=== PATIENT | male | born 1980 | race Caucasian/White ===

== ENCOUNTER 2023-08-01 10:29 | Day surgery (SDC) | payer BC, SELFPAY ==
[2023-08-01] VITALS (14 sets, daily range): BP systolic 104–133; BP diastolic 74–99; PULSE 52–71; RESP 14–20; TEMP 36.2–36.4; O2SAT 92–97; BMI 28.2
[2023-08-01] MEDS: LACTATED RINGERS 1000 ML 1,000 ML 100 ML IV ×2 (10:35→12:26)
--- OUTSIDE RECORDS SUMMARY | 2023-08-01 10:37 | XMS_ITS | Continuity of Care Document ---
Author Name [facility] Organization [facility] Care Team Providers Care Log Buyer Name Role Phone [facility] Unavailable Unavailable Problems Combined list of problems from Department of Defense and Veterans Affairs facilities. It does not include entries that were removed or entered in error. Problem Status Onset Date Problem Type Date of Resolution Comments Source Degeneration of lumbosacral intervertebral disc Active Condition [facility] Diastolic hypertension Active Condition [facility] Gastroesophageal reflux disease Active Condition [facility] Hyperlipidemia Active Condition [facility] Tobacco use Active Condition [facility] current smoker Active Condition [facility] Blood Pressure Isolated Elevated Active Condition [facility] visit for: preoperative exam Inactive Condition [facility] joint pain, localized in the knee Active Condition [facility] testicular pain Active Condition [facility] visit for: services physical separation Active Condition [facility] epididymitis Inactive Condition [facility] Other Physical Therapy Active Condition [facility] sacroiliitis Active Condition [facility] Administrative Evaluation Services Inactive Condition [facility] visit for: issue medical certificate fitness Inactive Condition [facility] backache Active Condition [facility] sinusitis Active Condition [facility] upper respiratory infection Inactive Condition [facility] sleep disturbances Active Condition [facility] hand sprain right Inactive Condition [facility] fracture of radius closed Inactive Condition [facility] cellulitis of the right arm Inactive Condition [facility] tobacco use Inactive Condition [facility] throat pain Inactive Condition [facility] pharyngitis Inactive Condition [facility] sore throat Inactive Condition [facility] Intervention And Counseling On Cessation Of Tobacco Use Inactive Condition [facility] visit for: services physical pre-deployment Inactive Condition [facility] refractive error - hypermetropia Active Condition [facility] astigmatism regular Active Condition [facility] routine ophthalmological exam Inactive Condition [facility] chlamydial infections Inactive Condition [facility] herpes simplex type I Inactive Condition [facility] visit for: screening exam Inactive Condition [facility] benign skin neoplasm subcutaneous lipoma Inactive Condition [facility] visit for: services physical Inactive Condition [facility] Patient Education Inactive Condition [facility] routine pre-employment screening examination Inactive Condition [facility] congenital anomalies of skin Inactive Condition [facility] ankle sprain right Inactive Condition [facility] Patient Counseling Medical Management Individual Patient Inactive Condition [facility] acne Inactive Condition [facility] Need For Vaccination Against Single Disease Inactive Condition Pt. received Anthrax by [employer], Lot# [id number], expiration date 03 Apr 2009 on 31 Oct 2007. The vaccine was given in the left arm. Administered by, SSjustus Bingham Allergy immunizations [employer] Offbearer. All VIS's were received. [facility] visit for: services physical accession Inactive Condition [facility] psychiatric diagnosis or condition deferred on axis II Inactive Condition [facility] psychiatric diagnosis or condition deferred on axis I Active Condition [facility] assessment of patient condition work-related Inactive Condition [facility] Need For Vaccination Hepatitis B Inactive Condition Pt. received Ped Hep B by [employer] Lot # [id number], expiration date 03 January 2010, on October 07. The vaccine was given in the left leg. Administered by, SSgt Lico Flanagan Allergy Immunizations [employer] Offbearer. All VIS's were received. [facility] Vaccines Prophylactic Need Inactive Condition Pt. receiv ed Anthrax by [employer], Lot# [id number], expiration date 03 Apr 2009 on 07 October 2007. The vaccine was given in the left arm. Administered by, justus Flanagan, Allergy immunizations [employer] Offbearer. All VIS's were received [facility] Need For Vaccination Typhoid Inactive Condition Pt. received Typhoid by Sanofi Pasteur, Lot # [id number], expiration date 18 October 2008 on October 07. The vaccine was given in the left arm. Administered by, justus Flanagan Allergy immunizations [employer]. All VIS's were received. [facility] visit for: administrative purpose Inactive Condition [facility] dysthymic disorder (depressive neurosis) Inactive Condition [facility] skin abscess of left ear Inactive Condition Set up for I&D to be performed tomorrow at same time as sebaceous cyst removal. [facility] sebaceous cyst Inactive Condition scrot al. Set up for excision. [facility] nicotine dependence Inactive Condition [facility] closed fracture distal phalanx 2nd finger right Inactive Condition follow up from diagnosis made in ER. Mildly displaced and involves little of the joint space. Will place in splint to keep DIP only in extension for four weeks and reexamine q2 weeks. NSAIDS as needed. [facility] esophageal reflux Active Condition [facility] Diagnosis: ICD-10-CM Z72.0 Tobacco use Active Diagnosis [facility] Diagnosis: ICD-10-CM I10 Essential (primary) hypertension Active Diagnosis [facility] Diagnosis: ICD-10-CM M51.37 Other intervertebral disc degeneration, lumbosacral region Active Diagnosis [facility] Medications Combined list of outpatient medications from Department of Defense and Veterans Affairs facilities.Medications provided include 1) outpatient medications from the last 15 months, and 2) patient-reported medications. Medication Details Route Status Patient Instructions Prescription Expires Prescription Number Last Dispense Date Ordering Provider Order Date Source AMLODIPINE BESYLATE 5MG TAB TAKE ONE TABLET BY MOUTH EVERY DAY FOR BLOOD PRESSURE ORALLY DISCONT INUED 06/15/2023 [id number] ROBERTO MONDRAGON 2021 [facility] VARENICLINE 1MG TAB TAKE ONE TABLET BY MOUTH TWICE A DAY TO QUIT TOBACCO ORALLY ACTIVE 07/24/2024 [id number] 4 GENEVIEVE OROPEZA 2023 [facility] VARENICLINE 1MG TAB TAKE ONE-HALF TABLET BY MOUTH EVERY DAY FOR 3 DAYS, THEN TAKE ONE-HALF TABLET TWICE A DAY FOR 4 DAYS, THEN TAKE ONE TABLET TWICE A DAY TO QUIT TOBACCO ORALLY DISCONT INUED 06/11/2024 [id number] ANG ROB 2022 [facility] VARENICLINE 1MG TAB TAKE 1 TABLET BY MOUTH TWICE A DAY TO QUIT TOBACCO MONTHS 2 AND 3 ORALLY DISCONT INUED 06/15/2023 [id number] 3 ROBERTO MONDRAGON 2021 [facility] VARENICLINE 1MG TAB TAKE ONE-HALF TABLET BY MOUTH EVERY DAY FOR 3 DAYS, THEN TAKE ONE-HALF TABLET TWICE A DAY FOR 4 DAYS, THEN TAKE 1 TABLET TWICE A DAY TO QUIT TOBACCO. STOP USING TOBACCO ON DAY 8. MONTH 1 OF 3: CALL PROVIDER FOR NEXT FILL TO QUIT TOBACCO. STOP USING TOBACCO ON DAY 8. MONTH 1 OF 3: CALL PROVIDER FOR NEXT FILL ORALLY 06/16/2022 [id number] ROBERTO MONDRAGON 2021 [facility] Allergies, Adverse Reactions, Alerts Combined list of allergies from Department of Defense and Veterans Affairs facilities. It does not include entries that were removed or entered in error. Substance Category Reaction Severity Reaction type Status Date Reported Comments Source NO OUTPUT FOR NCID [id number] Drug allergy (disorder) active 11/07/2007 [facility] Immunizations Combined list of available immunizations from the Department of Defense and Veterans Affairs facilities. Immunization Series Date Given Administered By Site Reaction Lot Number CVX Code Drug Colorman Status Comments Source INFLUENZA, UNSPECIFIED FORMULATION 2022 88 complet [facility] PNEUMOCOCCAL CONJUGATE PCV20, POLYSACCHARID E [id number] CONJUGATE, ADJUVANT, PF 2021 216 complet ed [facility] COVID-19 (MODERNA), MRNA, LNP-S, BIVALENT, PF, 50 MCG/0.5 ML OR 25MCG/0.25 ML DOSE 2021 229 complet [facility] INFLUENZA, INJECTABLE, MDCK, PRESERVATIVE FREE, QUADRIVALENT 2021 171 complet [facility] INFLUENZA, UNSPECIFIED FORMULATION 2020 88 complet ed [facility] INFLUENZA, INJECTABLE, QUADRIVALENT, PRESERVATIVE FREE 2020 150 complet ed [facility] COVID-19 (MODERNA), MRNA, LNP-S, PF, 100 MCG/0.5 ML DOSE 2 2020 207 complet ed [facility] COVID-19 (MODERNA), MRNA, LNP-S, PF, 100 MCG/0.5 ML DOSE 1 2020 207 complet [facility] INFLUENZA, INJECTABLE, QUADRIVALENT, PRESERVATIVE FREE 2019 150 complet [facility] PNEUMOCOCCAL POLYSACCHARID E PPV23 2019 33 complet ed [id number] [facility] INFLUENZA, SEASONAL, INJECTABLE 2016 141 complet [facility] INFLUENZA, INJECTABLE, QUADRIVALENT, PRESERVATIVE FREE 2016 150 complet [facility] INFLUENZA, INJECTABLE, QUADRIVALENT, PRESERVATIVE FREE 2014 150 complet [facility] TDAP 2013 115 complet [facility] influenza virus vaccine, live, attenuated, for intranasal use 12 2010 [id number] Daojia, NOZA. (MED) complet ed influenza virus vaccine, live, attenuate d, for intranasa l use [facility] influenza virus vaccine, split virus (incl. purified surface antigen)-reti red CODE 11 2009 [id number] Sanofi Pasteur (PMC) complet ed influenza virus vaccine, split virus (incl. purified surface antigen)- retired CODE DoD anthrax vaccine 4 2009 [id number] [employer] [place] ([facility]) complet ed anthrax vaccine DoD tetanus toxoid, reduced diphtheria toxoid, and acellular pertu is vaccine, adsorbed 0 2009 [id number] Sanofi Pasteur ([facility]) complet ed tetanus toxoid, reduced diphtheri a toxoid, and acellular pertussis vaccine, adsorbed DoD anthrax vaccine 3 2009 [id number] [facility] ([facility]) complet ed anthrax vaccine DoD typhoid Vi capsular polysaccharid e vaccine 1 2009 [id number] 101 Sanofi Pasteur ([facility]) complet ed typhoid Vi capsular polysacch aride vaccine DoD Novel influenza-H1N 1-09, injectable 1 2009 [id number] 127 [employer]progress. (NOV) complet ed Novel influenza -X1Y1-88, injectabl e DoD influenza virus vaccine, live, attenuated, for intranasal use 1 2008 [id number] [employer] (MED) complet ed influenza virus vaccine, live, attenuate d, for intranasa l use DoD hepatitis B vaccine, adult dosage 3 2008 [id number] 43 [employer] (SKB) complet ed hepatitis B vaccine, adult dosage DoD influenza virus vaccine, split virus (incl. purified surface antigen)-reti red CODE 1 2007 [id number] 15 Sanofi Pasteur ([facility]) complet ed influenza virus vaccine, split virus (incl. purified surface antigen)- retired CODE DoD hepatitis B vaccine, adult dosage 2 2007 [id number] 43 [employer] (SKB) complet ed hepatitis B vaccine, adult dosage DoD anthrax vaccine 2 2007 [id number] [employer] [place] ([facility]) complet ed anthrax vaccine DoD anthrax vaccine 1 2007 [id number] [facility] [place] ([facility]) complet ed anthrax vaccine DoD hepatitis B vaccine, adult dosage 1 2007 [id number] Merck (MSD) complet ed hepatitis B vaccine, adult dosage DoD typhoid Vi capsular polysaccharid e vaccine 1 2007 [id number] 101 Sanofi Pasteur ([facility]) complet ed typhoid Vi capsular polysacch aride vaccine DoD influenza virus vaccine, split virus (incl. purified surface antigen)-reti red CODE 1 2007 [id number] 15 [employer] (SKB) complet ed influenza virus vaccine, split virus (incl. purified surface antigen)- retired CODE DoD influenza virus vaccine, split virus (incl. purified surface antigen)-reti red CODE 1 2005 [id number] 15 Sanofi Pasteur ([facility]) complet ed influenza virus vaccine, split virus (incl. purified surface antigen)- retired CODE DoD influenza virus vaccine, split virus (incl. purified surface antigen)-reti red CODE 1 2004 [id number] 15 Sanofi Pasteur ([facility]) complet ed influenza virus vaccine, split virus (incl. purified surface antigen)- retired CODE DoD meningococcal polysaccharid e vaccine (MPSV4) 1 2004 [id number] 32 Sanofi Pasteur ([facility]) complet ed meningoco ccal polysacch aride vaccine (MPSV4) DoD vaccinia (smallpox) vaccine 0 2004 75 () Not Given vaccinia (smallpox ) vaccine DoD influenza virus vaccine, whole virus 1 2004 [id number] 16 Sanofi Pasteur ([facility]) complet ed influenza virus vaccine, whole virus DoD typhoid vaccine, parenteral, other than acetone-kille d, dried 1 2004 [id number] Sanofi Pasteur ([facility]) complet ed typhoid vaccine, parentera l, other than acetone-k illed, dried DoD influenza virus vaccine, whole virus 0 2002 [id number] [employer] (PWJ) complet ed influenza virus vaccine, whole virus DoD influenza virus vaccine, whole virus 0 2001 [id number] 16 Digna-Helio (NICHOLAS) complet ed influenza virus vaccine, whole virus DoD yellow fever vaccine 0 2001 [id number] Sanofi Pasteur (PMC) complet ed yellow fever vaccine DoD typhoid vaccine, parenteral, other than acetone-kille d, dried 0 2001 [id number] 41 Sanofi Pasteur ([facility]) complet ed typhoid vaccine, parentera l, other than acetone-k illed, dried DoD influenza virus vaccine, whole virus 0 2001 16 () complet ed influenza virus vaccine, whole virus DoD influenza virus vaccine, whole virus 0 2000 [id number] 16 Digna-Helio (WAL) complet ed influenza virus vaccine, whole virus DoD hepatitis A vaccine, adult dosage 2 2000 [id number] Merck (MSD) complet ed hepatitis A vaccine, adult dosage DoD measles, mumps and rubella virus vaccine 0 1999 [id number] Merck (MSD) complet ed measles, mumps and rubella virus vaccine DoD poliovirus vaccine, inactivated 0 1999 [id number] 10 Sanofi Pasteur (PMC) complet ed polioviru s vaccine, inactivat ed DoD varicella virus vaccine 1 1999 21 () Not Given varicella virus vaccine DoD hepatitis A vaccine, adult dosage 1 1999 [id number] 52 Sanofi Pasteur (PMC) complet ed hepatitis A vaccine, adult dosage DoD tetanus and diphtheria toxoids, adsorbed, preservative free, for adult use (2 Lf of tetanus toxoid and 2 Lf of diphtheria toxoid) 0 1999 [id number] Lederle (LED) comple t ed tetanus and diphtheri a toxoids, adsorbed, preservat abraham free, for adult use (2 Lf of tetanus toxoid and 2 Lf of diphtheri a toxoid) DoD meningococcal polysaccharid e vaccine (MPSV4) 0 1999 [id number] [place] (CON) complet ed meningoco ccal polysacch aride vaccine (MPSV4) DoD Results Combined list of recent chemistry, hematology and other laboratory results from Department of Defense and Veterans Affairs, ranging from 15 months to all on record, depending upon the facility. Order Name Results Value Reference Range Date Interpretation Specimen Comments Source CBC LEUKOCYTES [#/VOLUME] IN BLOOD BY AUTOMATED COUNT 6.97 4.0 - 11.0 06/11 Specimen Type: BLOOD No comment entered. Ordering Provider: ROBEL MENDIETA Report Released Date/Time: May 15, 2022 12:34 PM Reporting Lab: [facility] [address] Performing Lab: [facility] [address] [facility] CBC ERYTHROCYTE S [#/VOLUME] IN BLOOD BY AUTOMATED COUNT 5.03 4.6 - 6.2 06/11 Specimen Type: BLOOD No comment entered. Ordering Provider: ROBEL MENDIETA Report Released Date/Time: May 15, 2022 12:34 PM Reporting Lab: [facility] [address] Performing Lab: [facility] [address] [place] [facility] CBC HEMOGLOBIN [MASS/VOLUM E] IN BLOOD 15.3 13.5 - 17.9 06/11 Specimen Type: BLOOD No comment entered. Ordering Provider: ROBEL MENDIETA Report Released Date/Time: May 15, 2022 12:34 PM Reporting Lab: [facility] [phone] Performing Lab: [facility] [address] [place] [facility] CBC HEMATOCRIT [VOLUME FRACTION] OF BLOOD BY AUTOMATED COUNT 45.0 41 - 54 06/11 Specimen Type: BLOOD No comment entered. Ordering Provider: ROBEL MENDIETA Report Released Date/Time: May 15, 2022 12:34 PM Reporting Lab: [facility] [address] Performing Lab: [facility] [address] [place] [facility] CBC MCV [ENTITIC VOLUME] BY AUTOMATED COUNT 89.5 80 - 100 06/11 Specimen Type: BLOOD No comment entered. Ordering Provider: ROBEL MENDIETA Report Released Date/Time: May 15, 2022 12:34 PM Reporting Lab: [facility] [address] Performing Lab: [facility] [address] [place] [facility] CBC MCH [ENTITIC MASS] BY AUTOMATED COUNT 30.4 27 - 33 06/11 Specimen Type: BLOOD No comment entered. Ordering Provider: ROBEL MENDIETA Report Released Date/Time: May 15, 2022 12:34 PM Reporting Lab: [facility] [address] Performing Lab: [facility] [address] [place] [facility] CBC MCHC [MASS/VOLUM E] BY AUTOMATED COUNT 34.0 32.0 - 37.5 06/11 Specimen Type: BLOOD No comment entered. Ordering Provider: ROBEL MENDIETA Report Released Date/Time: May 15, 2022 12:34 PM Reporting Lab: [facility] [address] Performing Lab: [facility] [address] [place] [facility] CBC PLATELETS [#/VOLUME] IN BLOOD BY AUTOMATED COUNT 239 150 - 400 06/11 Specimen Type: BLOOD No comment entered. Ordering Provider: ROBEL MENDIETA Report Released Date/Time: May 15, 2022 12:34 PM Reporting Lab: [facility] [address] Performing Lab: [facility] [address] [place] [facility] CBC PLATELET MEAN VOLUME [ENTITIC VOLUME] IN BLOOD BY AUTOMATED COUNT 9.8 7.4 - 10.4 06/11 Specimen Type: BLOOD No comment entered. Ordering Provider: ROBEL MENDIETA Report Released Date/Time: May 15, 2022 12:34 PM Reporting Lab: [facility] [address] Performing Lab: [facility] [address] [facility] CBC ERYTHROCYTE DISTRIBUTIO N WIDTH [RATIO] BY AUTOMATED COUNT 12.9 11.5 - 14.5 06/11 Specimen Type: BLOOD No comment entered. Ordering Provider: ROBEL MENDIETA Report Released Date/Time: May 15, 2022 12:34 PM Reporting Lab: [facility] [address] Performing Lab: [facility] [address] [facility] BASIC METABOLIC PANEL+MG CREATININE [MASS/VOLUM E] IN SERUM OR PLASMA 0.9 0.7 - 1.2 06/11 Specimen Type: PLASMA No comment entered. Ordering Provider: ROBEL MENDIETA Report Released Date/Time: May 15, 2022 12:34 PM Reporting Lab: [facility] [address] Performing Lab: [facility] [address] [place] [facility] BASIC METABOLIC PANEL+MG UREA NITROGEN [MASS/VOLUM E] IN SERUM OR PLASMA 13 8 - 26 06/11 Specimen Type: PLASMA No comment entered. Ordering Provider: ROBEL MENDIETA Report Released Date/Time: May 15, 2022 12:34 PM Reporting Lab: [facility] [address] Performing Lab: [facility] [address] [place] [facility] BASIC METABOLIC PANEL+MG GLUCOSE [MASS/VOLUM E] IN SERUM OR PLASMA 94 70 - 100 06/11 Specimen Type: PLASMA No comment entered. Ordering Provider: ROBEL MENDIETA Report Released Date/Time: May 15, 2022 12:34 PM Reporting Lab: [facility] [address] Performing Lab: [facility] [address] [place] [facility] BASIC METABOLIC PANEL+MG SODIUM [MOLES/VOLU ME] IN SERUM OR PLASMA 138 136 - 145 06/11 Specimen Type: PLASMA No comment entered. Ordering Provider: ROBEL MENDIETA Report Released Date/Time: May 15, 2022 12:34 PM Reporting Lab: [facility] [address] Performing Lab: [facility] [address] [place] [facility] BASIC METABOLIC PANEL+MG POTASSIUM [MOLES/VOLU ME] IN SERUM OR PLASMA 4.5 3.5 - 5.1 06/11 Specimen Type: PLASMA No comment entered. Ordering Provider: ROBEL MENDIETA Report Released Date/Time: May 15, 2022 12:34 PM Reporting Lab: [facility] [address] Performing Lab: [facility] [address] [place] [facility] BASIC METABOLIC PANEL+MG CHLORIDE [MOLES/VOLU ME] IN SERUM OR PLASMA 106 98 - 107 06/11 Specimen Type: PLASMA No comment entered. Ordering Provider: ROBEL MENDIETA Report Released Date/Time: May 15, 2022 12:34 PM Reporting Lab: [facility] [address] Performing Lab: [facility] [address] [place] [facility] BASIC METABOLIC PANEL+MG CARBON DIOXIDE, TOTAL [MOLES/VOLU ME] IN SERUM OR PLASMA 26 22 - 29 06/11 Specimen Type: PLASMA No comment entered. Ordering Provider: ROBEL MENDIETA Report Released Date/Time: May 15, 2022 12:34 PM Reporting Lab: [facility] [address] Performing Lab: [facility] [address] [place] [facility] BASIC METABOLIC PANEL+MG CALCIUM [MASS/VOLUM E] IN SERUM OR PLASMA 9.4 8.4 - 10.2 06/11 Specimen Type: PLASMA No comment entered. Ordering Provider: ROBEL MENDIETA Report Released Date/Time: May 15, 2022 12:34 PM Reporting Lab: [facility] [address] Performing Lab: [facility] [address] [place] [facility] BASIC METABOLIC PANEL+MG MAGNESIUM [MASS/VOLUM E] IN SERUM OR PLASMA 2.2 1.6 - 2.6 06/11 Specimen Type: PLASMA No comment entered. Ordering Provider: ROBEL MENDIETA Report Released Date/Time: May 15, 2022 12:34 PM Reporting Lab: [facility] [address] Performing Lab: [facility] [address] [place] [facility] BASIC METABOLIC PANEL+MG ANION GAP IN SERUM OR PLASMA 6 5 - 15 06/11 Specimen Type: PLASMA No comment entered. Ordering Provider: ROBEL MENDIETA Report Released Date/Time: May 15, 2022 12:34 PM Reporting Lab: [facility] [address] Performing Lab: [facility] [address] [place] [facility] BASIC METABOLIC PANEL+MG GLOMERULAR FILTRATION RATE/1.73 SQ M.PREDICTED [VOLUME RATE/AREA] IN SERUM, PLASMA OR BLOOD BY CREATININE- BASED FORMULA (CKD-EPI 2020) >90 60 06/11 Specimen Type: PLASMA No comment entered. Ordering Provider: ROBEL MENDIETA Report Released Date/Time: May 15, 2022 12:34 PM Reporting Lab: [facility] [address] Performing Lab: [facility] [address] [place] [facility] AST/SGOT ASPARTATE AMINOTRANSF ERASE [ENZYMATIC ACTIVITY/VO LUME] IN SERUM OR PLASMA 14 <34 - 34 06/11 Specimen Type: PLASMA No comment entered. Ordering Provider: ROBEL MENDIETA Report Released Date/Time: May 15, 2022 12:34 PM Reporting Lab: [facility] [address] Performing Lab: [facility] [address] [place] [facility] ALT/SGPT ALANINE AMINOTRANSF ERASE [ENZYMATIC ACTIVITY/VO LUME] IN SERUM OR PLASMA 17 <55 - 55 06/11 Specimen Type: PLASMA No comment entered. Ordering Provider: ROBEL MENDIETA Report Released Date/Time: May 15, 2022 12:34 PM Reporting Lab: [facility] [facility] [address] Performing Lab: [facility] [address] [place] [facility] LIPID PANEL,NON -FASTING CHOLESTEROL [MASS/VOLUM E] IN SERUM OR PLASMA 198 <199 - 199 06/11 Specimen Type: PLASMA No comment entered. Ordering Provider: ROBEL MENDIETA Report Released Date/Time: May 15, 2022 12:34 PM Reporting Lab: [facility] [address] Performing Lab: [facility] [address] [place] [facility] LIPID PANEL,NON -FASTING CHOLESTEROL IN HDL [MASS/VOLUM E] IN SERUM OR PLASMA 37 40 06/11 L Specimen Type: PLASMA No comment entered. Ordering Provider: ROBEL MENDIETA Report Released Date/Time: May 15, 2022 12:34 PM Reporting Lab: [facility] [address] Performing Lab: [facility] [address] [place] [facility] LIPID PANEL,NON -FASTING CHOLESTEROL IN LDL [MASS/VOLUM E] IN SERUM OR PLASMA BY CALCULATION 131 <99 - 99 06/11 H Specimen Type: PLASMA No comment entered. Ordering Provider: ROBEL MENDIETA Report Released Date/Time: May 15, 2022 12:34 PM Reporting Lab: [facility] [address] Performing Lab: [facility] [address] [place] [facility] LIPID PANEL,NON -FASTING CHOLESTEROL IN VLDL [MASS/VOLUM E] IN SERUM OR PLASMA BY CALCULATION 30 <29 - 29 06/11 H Specimen Type: PLASMA No comment entered. Ordering Provider: ROBEL MENDIETA Report Released Date/Time: May 15, 2022 12:34 PM Reporting Lab: [facility] [address] Performing Lab: [facility] [address] [place] [facility] LIPID PANEL,NON -FASTING CHOLESTEROL NON HDL [MASS/VOLUM E] IN SERUM OR PLASMA 161 <129 - 129 06/11 H Specimen Type: PLASMA No comment entered. Ordering Provider: ROBEL MENDIETA Report Released Date/Time: May 15, 2022 12:34 PM Reporting Lab: [facility] [address] Performing Lab: [facility] [address] [place] [facility] LIPID PANEL,NON -FASTING TRIGLYCERID E [MASS/VOLUM E] IN SERUM OR PLASMA 149 <149 - 149 06/11 Specimen Type: PLASMA No comment entered. Ordering Provider: ROBEL MENDIETA Report Released Date/Time: May 15, 2022 12:34 PM Reporting Lab: [facility] [address] Performing Lab: [facility] [address] [place] [facility] CBC LEUKOCYTES [#/VOLUME] IN BLOOD BY AUTOMATED COUNT 7.86 4.0 - 11.0 05/15 Specimen Type: BLOOD No comment entered. Ordering Provider: GLADYS FISHER R Report Released Date/Time: May 10, 2021 11:22 AM Reporting Lab: [facility] [address] Performing Lab: [facility] [address] [place] [facility] CBC ERYTHROCYTE S [#/VOLUME] IN BLOOD BY AUTOMATED COUNT 4.85 4.6 - 6.2 05/15 Specimen Type: BLOOD No comment entered. Ordering Provider: GLADYS FISHER R Report Released Date/Time: May 10, 2021 11:22 AM Reporting Lab: [facility] [address] Performing Lab: [facility] [address] [place] [facility] CBC HEMOGLOBIN [MASS/VOLUM E] IN BLOOD 14.7 13.5 - 17.9 05/15 Specimen Type: BLOOD No comment entered. Ordering Provider: GLADYS FISHER R Report Released Date/Time: May 10, 2021 11:22 AM Reporting Lab: [address] Performing Lab: [address] [place] [facility] CBC HEMATOCRIT [VOLUME FRACTION] OF BLOOD BY AUTOMATED COUNT 43.2 41 - 54 05/15 Specimen Type: BLOOD No comment entered. Ordering Provider: GLADYS FISHER R Report Released Date/Time: May 10, 2021 11:22 AM Reporting Lab: [facility] [address] Performing Lab: [place] [address] [place] [facility] CBC MCV [ENTITIC VOLUME] BY AUTOMATED COUNT 89.1 80 - 100 05/15 Specimen Type: BLOOD No comment entered. Ordering Provider: GLADYS FISHER R Report Released Date/Time: May 10, 2021 11:22 AM Reporting Lab: [facility] [address] Performing Lab: [place] [address] [place] [facility] CBC MCH [ENTITIC MASS] BY AUTOMATED COUNT 30.3 27 - 33 05/15 Specimen Type: BLOOD No comment entered. Ordering Provider: GLADYS FISHER R Report Released Date/Time: May 10, 2021 11:22 AM Reporting Lab: [facility] [address] Performing Lab: [facility] [address] [place] [facility] CBC MCHC [MASS/VOLUM E] BY AUTOMATED COUNT 34.0 32.0 - 37.5 05/15 Specimen Type: BLOOD No comment entered. Ordering Provider: GLADYS FISHER R Report Released Date/Time: May 10, 2021 11:22 AM Reporting Lab: [facility] [address] Performing Lab: [place] [address] [place] [facility] CBC PLATELETS [#/VOLUME] IN BLOOD BY AUTOMATED COUNT 246 150 - 400 05/15 Specimen Type: BLOOD No comment entered. Ordering Provider: GLADYS FISHER R Report Released Date/Time: May 10, 2021 11:22 AM Reporting Lab: [facility] [address] Performing Lab: [facility] [address] [facility] CBC PLATELET MEAN VOLUME [ENTITIC VOLUME] IN BLOOD BY AUTOMATED COUNT 9.7 7.4 - 10.4 05/15 Specimen Type: BLOOD No comment entered. Ordering Provider: GLADYS FISHER R Report Released Date/Time: May 10, 2021 11:22 AM Reporting Lab: [facility] [address] Performing Lab: [facility] [address] [facility] CBC ERYTHROCYTE DISTRIBUTIO N WIDTH [RATIO] BY AUTOMATED COUNT 12.5 11.5 - 14.5 05/15 Specimen Type: BLOOD No comment entered. Ordering Provider: GLADYS FISHER R Report Released Date/Time: May 10, 2021 11:22 AM Reporting Lab: [facility] [address] Performing Lab: [facility] [address] [facility] COMPREHEN SIVE METABOLIC PANEL+MG CREATININE [MASS/VOLUM E] IN SERUM OR PLASMA 0.9 0.7 - 1.2 05/15 Specimen Type: PLASMA Comment: Elevated triglycerid e result from a non-fasting specimen should be interpreted with caution. A fasting panel is recommended for accurate triglycerid es when trigs are >200 from a non-fasting specimen. Ordering Provider: GLADYS FISHER R Report Released Date/Time: May 10, 2021 11:22 AM Reporting Lab: [facility] [address] Performing Lab: [facility] [address] [facility] COMPREHEN SIVE METABOLIC PANEL+MG UREA NITROGEN [MASS/VOLUM E] IN SERUM OR PLASMA 15 8 - 26 05/15 Specimen Type: PLASMA Comment: Elevated triglycerid e result from a non-fasting specimen should be interpreted with caution. A fasting panel is recommended for accurate triglycerid es when trigs are >200 from a non-fasting specimen. Ordering Provider: GLADYS FISHER R Report Released Date/Time: May 10, 2021 11:22 AM Reporting Lab: [facility] [address] Performing Lab: [facility] [address] [place] [facility] COMPREHEN SIVE METABOLIC PANEL+MG GLUCOSE [MASS/VOLUM E] IN SERUM OR PLASMA 85 70 - 100 05/15 Specimen Type: PLASMA Comment: Elevated triglycerid e result from a non-fasting specimen should be interpreted with caution. A fasting panel is recommended for accurate triglycerid es when trigs are >200 from a non-fasting specimen. Ordering Provider: GLADYS FISHER R Report Released Date/Time: May 10, 2021 11:22 AM Reporting Lab: [facility] [address] Performing Lab: [facility] [address] [facility] COMPREHEN SIVE METABOLIC PANEL+MG SODIUM [MOLES/VOLU ME] IN SERUM OR PLASMA 138 136 - 145 05/15 Specimen Type: PLASMA Comment: Elevated triglycerid e result from a non-fasting specimen should be interpreted with caution. A fasting panel is recommended for accurate triglycerid es when trigs are >200 from a non-fasting specimen. Ordering Provider: GLADYS FISHER R Report Released Date/Time: May 10, 2021 11:22 AM Reporting Lab: [facility] [address] Performing Lab: [facility] [address] [facility] COMPREHEN SIVE METABOLIC PANEL+MG POTASSIUM [MOLES/VOLU ME] IN SERUM OR PLASMA 4.2 3.5 - 5.1 05/15 Specimen Type: PLASMA Comment: Elevated triglycerid e result from a non-fasting specimen should be interpreted with caution. A fasting panel is recommended for accurate triglycerid es when trigs are >200 from a non-fasting specimen. Ordering Provider: GLADYS FISHER R Report Released Date/Time: May 10, 2021 11:22 AM Reporting Lab: [facility] [address] Performing Lab: [facility] [address] [place] [facility] COMPREHEN SIVE METABOLIC PANEL+MG CHLORIDE [MOLES/VOLU ME] IN SERUM OR PLASMA 108 98 - 107 05/15 H Specimen Type: PLASMA Comment: Elevated triglycerid e result from a non-fasting specimen should be interpreted with caution. A fasting panel is recommended for accurate triglycerid es when trigs are >200 from a non-fasting specimen. Ordering Provider: GLADYS FISHER R Report Released Date/Time: May 10, 2021 11:22 AM Reporting Lab: [facility] [address] Performing Lab: [facility] [address] [facility] COMPREHEN SIVE METABOLIC PANEL+MG CARBON DIOXIDE, TOTAL [MOLES/VOLU ME] IN SERUM OR PLASMA 24 - 05/15 Specimen Type: PLASMA Comment: Elevated triglycerid e result from a non-fasting specimen should be interpreted with caution. A fasting panel is recommended for accurate triglycerid es when trigs are >200 from a non-fasting specimen. Ordering Provider: GLADYS FISHRE R Report Released Date/Time: May 10, 2021 11:22 AM Reporting Lab: [facility] [address] Performing Lab: [facility] [address] [facility] COMPREHEN SIVE METABOLIC PANEL+MG CALCIUM [MASS/VOLUM E] IN SERUM OR PLASMA 8.7 8.4 - 10.2 05/15 Specimen Type: PLASMA Comment: Elevated triglycerid e result from a non-fasting specimen should be interpreted with caution. A fasting panel is recommended for accurate triglycerid es when trigs are >200 from a non-fasting specimen. Ordering Provider: GLADYS FISHER R Report Released Date/Time: May 10, 2021 11:22 AM Reporting Lab: [facility] [address] Performing Lab: [facility] [address] [place] [facility] COMPREHEN SIVE METABOLIC PANEL+MG PROTEIN [MASS/VOLUM E] IN SERUM OR PLASMA 6.6 6.0 - 8.3 05/15 Specimen Type: PLASMA Comment: Elevated triglycerid e result from a non-fasting specimen should be interpreted with caution. A fasting panel is recommended for accurate triglycerid es when trigs are >200 from a non-fasting specimen. Ordering Provider: GLADYS FISHER R Report Released Date/Time: May 10, 2021 11:22 AM Reporting Lab: [facility] [address] Performing Lab: [facility] [address] [place] [facility] COMPREHEN SIVE METABOLIC PANEL+MG ALBUMIN [MASS/VOLUM E] IN SERUM OR PLASMA 3.8 3.5 - 5.2 05/15 Specimen Type: PLASMA Comment: Elevated triglycerid e result from a non-fasting specimen should be interpreted with caution. A fasting panel is recommended for accurate triglycerid es when trigs are >200 from a non-fasting specimen. Ordering Provider: GLADYS FISHER R Report Released Date/Time: May 10, 2021 11:22 AM Reporting Lab: [facility] [address] Performing Lab: [facility] [address] [facility] COMPREHEN SIVE METABOLIC PANEL+MG BILIRUBIN.T OTAL [MASS/VOLUM E] IN SERUM OR PLASMA 0.3 0.2 - 1.2 05/15 Specimen Type: PLASMA Comment: Elevated triglycerid e result from a non-fasting specimen should be interpreted with caution. A fasting panel is recommended for accurate triglycerid es when trigs are >200 from a non-fasting specimen. Ordering Provider: GLADYS FISHER R Report Released Date/Time: May 10, 2021 11:22 AM Reporting Lab: [facility] [address] Performing Lab: [facility] [address] [facility] COMPREHEN SIVE METABOLIC PANEL+MG MAGNESIUM [MASS/VOLUM E] IN SERUM OR PLASMA 2.2 1.6 - 2.6 05/15 Specimen Type: PLASMA Comment: Elevated triglycerid e result from a non-fasting specimen should be interpreted with caution. A fasting panel is recommended for accurate triglycerid es when trigs are >200 from a non-fasting specimen. Ordering Provider: GLADYS FISHER R Report Released Date/Time: May 10, 2021 11:22 AM Reporting Lab: [facility] [address] Performing Lab: [facility] [address] [place] [facility] COMPREHEN SIVE METABOLIC PANEL+MG ANION GAP IN SERUM OR PLASMA 6 5 - 15 05/15 Specimen Type: PLASMA Comment: Elevated triglycerid e result from a non-fasting specimen should be interpreted with caution. A fasting panel is recommended for accurate triglycerid es when trigs are >200 from a non-fasting specimen. Ordering Provider: GLADYS FISHER R Report Released Date/Time: May 10, 2021 11:22 AM Reporting Lab: [facility] [address] Performing Lab: [facility] [address] [place] [facility] COMPREHEN SIVE METABOLIC PANEL+MG ALKALINE PHOSPHATASE [ENZYMATIC ACTIVITY/VO LUME] IN SERUM OR PLASMA 55 40 - 150 05/15 Specimen Type: PLASMA Comment: Elevated triglycerid e result from a non-fasting specimen should be interpreted with caution. A fasting panel is recommended for accurate triglycerid es when trigs are >200 from a non-fasting specimen. Ordering Provider: GLADYS FISHER R Report Released Date/Time: May 10, 2021 11:22 AM Reporting Lab: [facility] [address] Performing Lab: [facility] [address] [place] [facility] COMPREHEN SIVE METABOLIC PANEL+MG ALANINE AMINOTRANSF ERASE [ENZYMATIC ACTIVITY/VO LUME] IN SERUM OR PLASMA 25 <55 - 55 05/15 Specimen Type: PLASMA Comment: Elevated triglycerid e result from a non-fasting specimen should be interpreted with caution. A fasting panel is recommended for accurate triglycerid es when trigs are >200 from a non-fasting specimen. Ordering Provider: GLADYS FISHER R Report Released Date/Time: May 10, 2021 11:22 AM Reporting Lab: [facility] [address] Performing Lab: [facility] [address] [place] [facility] COMPREHEN SIVE METABOLIC PANEL+MG ASPARTATE AMINOTRANSF ERASE [ENZYMATIC ACTIVITY/VO LUME] IN SERUM OR PLASMA 11 <34 - 34 05/15 Specimen Type: PLASMA Comment: Elevated triglycerid e result from a non-fasting specimen should be interpreted with caution. A fasting panel is recommended for accurate triglycerid es when trigs are >200 from a non-fasting specimen. Ordering Provider: GLADYS FISHER R Report Released Date/Time: May 10, 2021 11:22 AM Reporting Lab: [facility] [address] Performing Lab: [facility] [address] [place] [facility] COMPREHEN SIVE METABOLIC PANEL+MG GLOMERULAR FILTRATION RATE/1.73 SQ M.PREDICTED [VOLUME RATE/AREA] IN SERUM, PLASMA OR BLOOD BY CREATININE- BASED FORMULA (CKD-EPI) >90 60 05/15 Specimen Type: PLASMA Comment: Elevated triglycerid e result from a non-fasting specimen should be interpreted with caution. A fasting panel is recommended for accurate triglycerid es when trigs are >200 from a non-fasting specimen. Ordering Provider: GLADYS FISHER R Report Released Date/Time: May 10, 2021 11:22 AM Reporting Lab: [facility] [address] Performing Lab: [facility] [address] [place] [facility] LIPID PANEL,NON -FASTING CHOLESTEROL [MASS/VOLUM E] IN SERUM OR PLASMA 211 <199 - 199 05/15 H Specimen Type: PLASMA Comment: Elevated triglycerid e result from a non-fasting specimen should be interpreted with caution. A fasting panel is recommended for accurate triglycerid es when trigs are >200 from a non-fasting specimen. Ordering Provider: GLADYS FISHER R Report Released Date/Time: May 10, 2021 11:22 AM Reporting Lab: [facility] [address] Performing Lab: [facility] [address] [place] [facility] LIPID PANEL,NON -FASTING CHOLESTEROL IN HDL [MASS/VOLUM E] IN SERUM OR PLASMA 39 40 05/15 L Specimen Type: PLASMA Comment: Elevated triglycerid e result from a non-fasting specimen should be interpreted with caution. A fasting panel is recommended for accurate triglycerid es when trigs are >200 from a non-fasting specimen. Ordering Provider: GLADYS FISHER R Report Released Date/Time: May 10, 2021 11:22 AM Reporting Lab: [facility] [address] Performing Lab: [facility] [address] [place] [facility] LIPID PANEL,NON -FASTING CHOLESTEROL IN LDL [MASS/VOLUM E] IN SERUM OR PLASMA BY CALCULATION 107 <99 - 99 05/15 H Specimen Type: PLASMA Comment: Elevated triglycerid e result from a non-fasting specimen should be interpreted with caution. A fasting panel is recommended for accurate triglycerid es when trigs are >200 from a non-fasting specimen. Ordering Provider: GLADYS FISHER R Report Released Date/Time: May 10, 2021 11:22 AM Reporting Lab: [facility] [address] Performing Lab: [facility] [address] [place] [facility] LIPID PANEL,NON -FASTING CHOLESTEROL IN VLDL [MASS/VOLUM E] IN SERUM OR PLASMA BY CALCULATION 65 <29 - 29 05/15 H Specimen Type: PLASMA Comment: Elevated triglycerid e result from a non-fasting specimen should be interpreted with caution. A fasting panel is recommended for accurate triglycerid es when trigs are >200 from a non-fasting specimen. Ordering Provider: GLADYS FISHER R Report Released Date/Time: May 10, 2021 11:22 AM Reporting Lab: [facility] [address] Performing Lab: [facility] [address] [place] [facility] LIPID PANEL,NON -FASTING CHOLESTEROL NON HDL [MASS/VOLUM E] IN SERUM OR PLASMA 172 <129 - 129 05/15 H Specimen Type: PLASMA Comment: Elevated triglycerid e result from a non-fasting specimen should be interpreted with caution. A fasting panel is recommended for accurate triglycerid es when trigs are >200 from a non-fasting specimen. Ordering Provider: GLADYS FISHER R Report Released Date/Time: May 10, 2021 11:22 AM Reporting Lab: [facility] [address] Performing Lab: [facility] [address] [place] [facility] LIPID PANEL,NON -FASTING TRIGLYCERID E [MASS/VOLUM E] IN SERUM OR PLASMA 323 <149 - 149 05/15 H Specimen Type: PLASMA Comment: Elevated triglycerid e result from a non-fasting specimen should be interpreted with caution. A fasting panel is recommended for accurate triglycerid es when trigs are >200 from a non-fasting specimen. Ordering Provider: GLADYS FISHER R Report Released Date/Time: May 10, 2021 11:22 AM Reporting Lab: [facility] [address] Performing Lab: [facility] [address] [facility] HEMOGLOBI N A1C HEMOGLOBIN A1C/HEMOGLO BIN.TOTAL IN BLOOD 5.6 4.0 - 6.0 05/15 Specimen Type: BLOOD Comment: Values obtained from A1C measurement s can vary. For typical A1C assays, a reported value of 7.0 could actually be between 6.7 and 7.3 if measured by a reference method. A reported value of 9.0 could actually be between 8.7 and 9.3. Ref: http://www. ngsp.org/[place] Pdata.asp Ordering Provider: GLADYS FISHER Report Released Date/Time: May 10, 2021 11:22 AM Reporting Lab: [facility] [address] Performing Lab: [facility] [address] [facility] TSH W/REFLEX TO FREE T4 THYROTROPIN [UNITS/VOLU ME] IN SERUM OR PLASMA 0.95 0.35 - 4.94 05/15 Specimen Type: PLASMA Comment: Elevated triglycerid e result from a non-fasting specimen should be interpreted with caution. A fasting panel is recommended for accurate triglycerid es when trigs are >200 from a non-fasting specimen. Ordering Provider: GLADYS FISHER Report Released Date/Time: May 10, 2021 11:22 AM Reporting Lab: [facility] [address] Performing Lab: [facility] [address] [facility] Vital Signs Combined list of inpatient and outpatient Vital Signs from Department of Defense and Veterans Affairs, ranging from 12 months to all on record, depending upon the facility. Vital Sign Value Date Comments Source SYSTOLIC BLOOD PRESSURE 122 06/11/2023 10:08:01 [facility] DIASTOLIC BLOOD PRESSURE 86 06/11/2023 10:08:01 [facility] PULSE OXIMETRY 94% 06/11/2023 10:08:01 [facility] [place] [facility] WEIGHT 212.9 06/11/2023 10:08:01 [place] [facility] BMI 28kg/m2 06/11/2023 10:08:01 [facility] PAIN 2 06/11/2023 10:08:01 [facility] HEIGHT 73 06/11/2023 10:08:01 [facility] TEMPERATURE 98.5 06/11/2023 10:08:01 [facility] PULSE 72 06/11/2023 10:08:01 [facility] RESPIRATION 16 06/11/2023 10:08:01 [facility] Encounters Combined list of: 1) Encounters from Department of Veterans Affairs facilities going back up to thelast 18 months. 2) Encounters from the Department of Defense facilities going back up to 280 months. Location Location Details Encounter Type Encounter Number Reason For Visit Attending Provider ADM Date DC Date Status Disposition Source [employer]([facility]) OUTPATIENT [id number] TURNER MONTANO 03/07 Released w/o Limitations [employer]([facility]) [employer]([facility]) OUTPATIENT [id number] TURNER MONTANO 03/15 Released w/o Limitations [employer]) [employer]([facility]) OUTPATIENT [id number] TURNER MONTANO 03/28 Released w/o Limitations [employer]) [employer]([facility]) OUTPATIENT [id number] referra l from ADRY Hamilton 03/29 Released w/o Limitations [employer] [employer]) OUTPATIENT [id number] TURNER MONTANO 04/04 Released w/o Limitations [employer]) [employer]([facility]) OUTPATIENT [id number] TURNER MONTANO 04/12 Released w/o Limitations [employer]) [employer]([facility]) OUTPATIENT [id number] TURNER MONTANO 05/03 Released w/o Limitations [employer]) [employer]([facility]) OUTPATIENT [id number] follow up nicole vernon to MEL Woodruff 05/09 Released w/o Limitations [employer] [employer]([facility]) OUTPATIENT [id number] TURNER MONTANO 07/11 Released w/o Limitations [employer] [employer] OUTPATIENT [id number] TURNER MONTANO 07/18 Released w/o Limitations [employer] [employer]([facility]) OUTPATIENT [id number] TURNER MONTANO 07/25 Released w/o Limitations [employer] [employer]([facility]) OUTPATIENT [id number] TURNER MONTANO 08/10 Released w/o Limitations [employer]([facility]) [employer]([facility]) OUTPATIENT [id number] growth on back of ear MEL WEINBERG 08/14 Released w/o Limitations [employer] [employer]([facility]) OUTPATIENT [id number] TURNER MONTANO 08/16 Released w/o Limitations [employer]) [employer]([facility]) OUTPATIENT [id number] I & D per MEL Turcios 08/17 Released w/o Limitations [employer] [employer]([facility]) OUTPATIENT [id number] TURNER MONTANO 08/23 Released w/o Limitations [employer] [employer]([facility]) OUTPATIENT [id number] TURNER MONTANO 08/30 Released w/o Limitations [employer] [employer]([facility]) OUTPATIENT [id number] TURNER MONTANO 11/08 Released w/o Limitations [employer]) [employer] Group([facility]) OUTPATIENT [id number] TURNER MONTANO 11/22 Released w/o Limitations [employer](A lc Mental Health) [employer]([facility] Mental Health) OUTPATIENT [id number] care summary , no patient contact TURNER MONTANO 01/18 Released w/o Limitations [employer](A Mental Health) [facility] [employer](All ergy Clinic) OUTPATIENT [id number] immuniz ations LICO Hernandez Janette 10/09 Released w/o Limitations [facility](A llergy Clinic) [facility] Practice [facility]) OUTPATIENT [id number] pha KD LEE 10/17 Released w/o Limitations [employer](F amily Practic e Clinic) [employer]) OUTPATIENT [id number] Assessm ent for deploym ent FRANCISCO FLOWER 10/24 Released w/o Limitations [employer]( ental Health Clinic) [facility] OUTPATIENT [id number] Pre-Dep zaydaymMARYANN Arboleda 10/29 Released w/o Limitations [employer](F light Medicin e Clinic) [facility] ergy Clinic) OUTPATIENT [id number] immuniz ations SU SEGUNDO 11/05 Released w/o Limitations [employer](A llergy Clinic) [facility] g[facility] Medicine Clinic) OUTPATIENT [id number] post-de IVONE Tapia 06/03 Released w/o Limitations [employer](F light Medicin e Clinic) [facility] Medicine Clinic Team B) OUTPATIENT [id number] F/U 2796 PARAS WINSTON 06/04 Released w/o Limitations [employer] [facility] [employer](F amily Medicin e Clinic Team B) [employer] OUTPATIENT [id number] pha KATIA Bush 10/12 Released w/o Limitations [employer] [facility]) [place] [address] [facility] Team B) OUTPATIENT [id number] ankle injury PARAS WINSTON 10/20 Released w/o Limitations [place] [address] [facility]( amily Medicin e Clinic Team B) [place] [address] [facility] Team B) OUTPATIENT [id number] ankle sprain PARAS WINSTON 10/28 Released w/o Limitations [place] [address] [facility]( amily Medicin e Clinic Team B) [place] [address] [facility] Team B) OUTPATIENT [id number] Acid Reflux MAXIME LITTLE 01/26 Released w/o Limitations [place] [address] [facility]( amily Medicin e Clinic Team B) [place] [address] [facility]) OUTPATIENT [id number] Smoking Cessati on SCOOBY FLORES L 03/23 Released w/o Limitations [place] [address] [facility]( light Medicin e Clinic) [place] [address] [facility]) OUTPATIENT [id number] pre deploym ENOC Rucker 10/06 Released w/o Limitations [place] [address] [facility]) [address] [facility]) OUTPATIENT [id number] KADEN Carrillo 10/08 Released w/o Limitations [place] [address] [facility]) [address] [facility] Team B) OUTPATIENT [id number] eval cyst on back SHIREEN CUNNINGHAM 10/11 Released w/o Limitations [place] [address] [facility]( amily Medicin e Clinic Team B) [address] [facility]) TELE CONSULT [id number] Positiv e screen for HSV 1 SHIREEN CUNNINGHAM 10/[address] [place] [address] [facility] [place] [facility] [place] [address] [facility](Opt ometry Clinic) OUTPATIENT [id number] exam SASKIA MARROQUIN Melyssa 10/20 Released w/o Limitations [place] [address] [facility] Group(O ptometr y Clinic) [place] MADRIGAL[address] [facility] Medicine Clinic Team B) TELE CONSULT [id number] predepl oparas ALEXANDER10/27 [place] [address] [facility]( amily Medicin e Clinic Team B) [place] Dorian[address] [facility] ght Medicine Clinic) OUTPATIENT [id number] Pre-dep loTALYA Miller 10/29 Released w/o Limitations [place] [address] [facility](F light Medicin e Clinic) [place] [address] [facility] Medicine Clinic Team B) TELE CONSULT [id number] Positiv e Repeat Labs JUSTIN DE LA TORRE 11/[address] [place] [address] [facility]( amily Medicin e Clinic Team B) [facility] OUTPATIENT [id number] 01/18 Released w/o Limitations [facility] OUTPATIENT [id number] 01/19 Released w/o Limitations [facility] OUTPATIENT [id number] 02/23 Released w/o Limitations [facility] [place] [address] [facility]) OUTPATIENT [id number] post ENOC BADILLO 05/09 Released w/o Limitations [place] [address] [facility]) [place] [address]ian[address] [facility] OUTPATIENT [id number] Post-TALYA Person 05/24 Released w/o Limitations [place] [address] [facility](F light Medicin e Clinic) [place] [address] [facility] Medicine Clinic Team B) OUTPATIENT [id number] Sore throat x 8 days HOLLI RUIZ I 09/22 Released w/o Limitations [place] [address] [facility](F amily Medicin e Clinic Team B) [place] [address] [facility] OUTPATIENT [id number] sore throat f/u HOLLI RUIZ I 10/13 Released w/o Limitations [employer] [employer]( amily Medicin e Clinic Team B) [address] [facility] Team B) TELE CONSULT [id number] [place] off [place] for throat SHOYUSUF, HOLLI I 10/[address] [address] [facility]( amily Medicin e Clinic Team B) [address] [facility] Team B) OUTPATIENT [id number] Dog Bite last night SHOYUSUF, HOLLI I 12/15 Released w/o Limitations [place] [address] [facility]( amily Medicin e Clinic Team B) [address] [facility] Team B) TELE CONSULT [id number] follow up dog bite SARA, HOLLI I 12/20 [place] [address] [facility]( amily Medicin e Clinic Team B) [address] [facility] Team B) OUTPATIENT [id number] f/up post surgery SARA, HOLLI I 12/26 Released w/o Limitations [facility] [address] [facility]( amily Medicin e Clinic Team B) [address] [facility] Team B) OUTPATIENT [id number] possibl e broke right thumb MAXIME LITTLE 02/07 Released with Work/Duty Limitations [facility] [address] [facility]( amily Medicin e Clinic Team B) [address] [facility]) OUTPATIENT [id number] KADEN Carrillo 02/22 Released w/o Limitations [facility] [address] [facility] Health Doshira spain) [address] [facility] Team B) OUTPATIENT [id number] sleep issues general DEVAN Lees 03/13 Released w/o Limitations [place] [address] [facility]( amily Medicin e Clinic Team B) [facility] [address] [facility] Team B) OUTPATIENT [id number] possibl e sinus infecti on SHOAF, HOLLI I 05/29 Released w/o Limitations [employer] [employer]( amily Medicin e Clinic Team B) [employer] [employer]([facility] Team B) OUTPATIENT [id number] pt states lower back pain, painful DEVAN MANLEY N 07/31 Released w/o Limitations [employer]( amily Medicin e Clinic Team B) [facility] [employer]([facility]) TELE CONSULT [id number] Notes Entered by: ADAN ESPINOZA 05 Aug 2011 1415 ------- ------- ------- ------- -- Antony Guerra ce: SBI/TOP SECRET ADAN ESPINOZA 08/05 [place] B- [facility] Group( light Medicin e Clinic) [facility] [employer]([facility]) TELE CONSULT [id number] Notes Entered by: ALANIS DELGADILLO 14 Aug 2011 1851 ------- ------- ------- ------- -- Antony Guerra ce Review ROGERS DELGADILLO 08/15 [place] [facility] [employer] [employer](Phy sical Therapy) OUTPATIENT [id number] GAVIN MCGUIRE 08/17 Released w/o Limitations [facility] [employer](P hysical Therapy ) [facility] OUTPATIENT [id number] LBP ASHIA MAZARIEGOS 09/05 Released w/o Limitations [employer] [employer](P hysical Therapy ) [facility] [employer](Phy sical Therapy) OUTPATIENT [id number] LBP ASHIA MAZARIEGOS 09/14 Released w/o Limitations [place](P hysical Therapy ) [facility](Phy sical Therapy) OUTPATIENT [id number] LBP NAUN KHAN 09/19 Released w/o Limitations [address] [facility](P hysical Therapy ) [address] [facility](Phy sical Therapy) OUTPATIENT [id number] f/u LBP GAVIN SINGH 09/20 Released w/o Limitations [address] [facility](P hysical Therapy ) [address] [facility](Phy sical Therapy) OUTPATIENT [id number] LBP NAUN KHAN 10/10 Released w/o Limitations [address] [facility](P hysical Therapy ) [address] [facility] Group(Phy sical Therapy) OUTPATIENT [id number] LBP ASHIA MAZARIEGOS Mio 10/31 Released w/o Limitations [address] [facility](P hysical Therapy ) [address] [facility] Team B) OUTPATIENT [id number] back problem s, can't sleep at night DEVAN MANLEY 11/14 Released w/o Limitations [address] [facility] [address] [facility] Team B) TELE CONSULT [id number] Notes Entered by: QUINN TINSLEY 05 Dec 2011 1233 ------- ------- ------- ------- -- pt states needs his sleep study and mri results TRICIA PETERS 12/[address] [facility]( amily Medicin e Clinic Team B) [address] [facility] Clinic Team B) TELE CONSULT [id number] Notes Entered by: ADI REGAN 12 Dec 2011 1322 ------- ------- ------- ------- -- MRI and Sleep study results . DEVAN MANLEY 12/[address] [facility] Medicin e Clinic Team B) [facility] [employer]([facility] Team B) OUTPATIENT [id number] pt states [place] Macias 12/21 Released w/o Limitations [facility] [employer]([facility] Medicin e Clinic Team B) [facility] Team B) OUTPATIENT [id number] outproc essing appt DEVAN MANLEY 01/04 [facility] w/o Limitations [facility] Team B) TELE CONSULT [id number] Notes Entered by: Melyssa DOUGLASS 16 Jan 2012 1019 ------- ------- ------- ------- -- MRI results TRICIA PETERS 01/[address] [facility] Medicin e Clinic Team B) [address] [facility] Team B) TELE CONSULT [id number] Notes Entered by: QUINN TINSLEY 19 Jan 2012 1030 ------- ------- ------- ------- -- pt states needs a referTRICIA Hidalgo 01/18 [facility] [facility] Team B) TELE CONSULT [id number] Notes Entered by: QUINN TINSLEY 19 Jan 2012 1036 ------- ------- ------- ------- -- pt states needs a H&P TRICIA Castano 01/18 [facility] [facility] Team B) OUTPATIENT [id number] pre-op appt. 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, lumbosa cral region< br/> NESS,SYLVI A O 05[facility] [place] [facility] [place] [facility] HC PRO PHONE CALL 11-20 MIN [id number] Diagnos is: ICD-10- CM Z72.0 Tobacco use<br/ > MILLIREN,E NATHALIE D 05/17 [place] [facility] [place] [facility] HC PRO PHONE CALL 11-20 MIN [id number] Diagnos is: ICD-10- CM Z72.0 Tobacco use<br/ > MILLIREN,E NATHALIE D 06/14 [place] [facility] [place] [facility] HC PRO PHONE CALL 5-10 MIN [id number] Diagnos is: ICD-10- CM Z72.0 Tobacco use<br/ > MILLIREN,E NATHALIE D 07/12 [place] [facility] QNHP OL DIG ASSMT&MGMT 5-10 [id number] Diagnos is: ICD-10- CM I10 Essenti al (primar y) hyperte nsion<b r/> ROOPAIREJanetteE NATHALIE D 08/08 [place] [facility] [place] [facility] Outpatient Encounter [id number] 08/08 [place] [facility] [place] [facility] Outpatient Encounter [id number] 05/02 [place] [facility] [place] [facility] Outpatient Encounter [id number] 05/08 [facility] [facility] Outpatient Encounter [id number] 06/11 [facility] OFFICE O/P EST MOD 30-39 MIN [id number] Diagnos is: ICD-10- CM Z72.0 Tobacco use<br/ > SANDRO ROB 06/11 [facility] HC PRO PHONE CALL 11-20 MIN [id number] Diagnos is: ICD-10- CM Z72.0 Tobacco use<br/ > NAMARIA TERESA ALVAREZ 06/13 [facility] MTMS BY PHARM EST 15 MIN [id number] Diagnos is: ICD-10- CM Z72.0 Tobacco use<br/ > NAMARIA TERESA ALVAREZ 07/24 [facility] Procedures Combined list of: 1) Procedures from Department of Veterans Affairs facilities going back up to thelast 18 months, not all [place] non-surgical procedures are included; 2) All procedures from the Department of Defense facilities. Procedure Procedure Type Code Date Perfomer Comments Mickey e Modalities Heat Hot Packs Modalities Heat Hot Packs 26318 11/02/19 12 ASHIA MAZARIEGOS Physical Therapy: ___ Se ion Segments, 15 Minutes Each Physical Therapy: ___ Session Segments, 15 Minutes Each 05024 11/02/19 12 ASHIA MAZARIEGOS Modalities Electrical Stimulation Unattended Modalities Electrical Stimulation Unattended 50774 11/02/19 12 ASHIA MAZARIEGOS Modalities Electrical Stimulation Unattended Modalities Electrical Stimulation Unattended 02374 10/11/19 12 NAUN KHAN Modalities Heat Hot Packs Modalities Heat Hot Packs 27502 10/11/19 12 NANU KHAN Physical Therapy: ___ Se ion Segments, 15 Minutes Each Physical Therapy: ___ Session Segments, 15 Minutes Each 80777 10/11/19 12 NAUN KHAN Modalities Heat Hot Packs Modalities Heat Hot Packs 94167 09/22/19 12 GAVIN SINGH [facility] Modalities Electrical Stimulation Unattended Modalities Electrical Stimulation Unattended 90255 09/22/19 12 GAVIN RACHEL [facility] Osteopathic Manip Treatment (OMT) 1-2 Body Regions Involved Osteopathic Manip Treatment (OMT) 1-2 Body Regions Involved 90866 09/22/19 12 GAVIN SINGH [facility] Physical Therapy Service Re-Evaluation 09/22/19 12 GAVIN RACHEL [facility] Modalities Electrical Stimulation Unattended Modalities Electrical Stimulation Unattended 27519 09/20/19 12 NAUN KHAN [facility] Modalities Heat Hot Packs Modalities Heat Hot Packs 06665 09/20/19 12 NAUN KHAN [facility] Physical Therapy: ___ Se ion Segments, 15 Minutes Each Physical Therapy: ___ Session Segments, 15 Minutes Each 21783 09/20/19 12 NAUN KHAN [facility] Modalities Heat Hot Packs Modalities Heat Hot Packs 22321 09/15/19 12 ASHIA MAZARIEGOS [facility] Modalities Electrical Stimulation Unattended Modalities Electrical Stimulation Unattended 55058 09/15/19 12 ASHIA MAZARIEGOS [facility] Physical Therapy: ___ Se ion Segments, 15 Minutes Each Physical Therapy: ___ Session Segments, 15 Minutes Each 10379 09/15/19 12 ASHIA MAZARIEGOS Modalities Electrical Stimulation Unattended Modalities Electrical Stimulation Unattended 08262 09/07/19 12 ASHIA MAZARIEGOS [facility] Modalities Heat Hot Packs Modalities Heat Hot Packs 87651 09/07/19 12 ASHIA MAZARIEGOS [facility] Physical Therapy: ___ Se ion Segments, 15 Minutes Each Physical Therapy: ___ Session Segments, 15 Minutes Each 74543 09/07/19 12 ASHIA MAZARIEGOS [facility] Modalities Heat Hot Packs Modalities Heat Hot Packs 89441 08/18/19 12 GAVIN SINGH [facility] Modalities Electrical Stimulation Unattended Modalities Electrical Stimulation Unattended 05391 08/18/19 12 GAVIN RACHEL [facility] Osteopathic Manip Treatment (OMT) 1-2 Body Regions Involved Osteopathic Manip Treatment (OMT) 1-2 Body Regions Involved 03467 08/18/19 12 GAVIN SINGH [facility] Physical Therapy Service Evaluation 08/18/19 12 GAVIN SINGH [facility] Psychiatric Diagnostic Evaluation Review of Records and Reports Psychiatric Diagnostic Evaluation Review of Records and Reports 40240 08/04/19 12 BRITNEY ZAMAN [facility] Physician Supervised Injection Intramuscular Physician Supervised Injection Intramuscular 06766 12/17/19 11 PURVIYUSUFHOLLI I [facility] Determination Of Refractive State Determination Of Refractive State 41358 10/21/19 10 SASKIA MARROQUIN [facility] Ophthalmological New Patient Start Comprehensive Care Ophthalmological New Patient Start Comprehensive Care 83830 10/21/19 10 SASKIA MARROQUIN [facility] Dermatological Surgery 10/12/19 10 ROBERTO ALEXANDER V Back cyst removal in 2002 [facility] Dental Procedures Tooth Extraction 10/09/19 10 KADEN HUBER x4 2003 [facility] Screening Test Of Visual Acuity, Quantitative, Bilateral Screening Test Of Visual Acuity, Quantitative, Bilateral 12802 10/13/19 09 KATIA HARPER [facility] Immunization Administration By Injection, One Vaccine Immunization Administration By Injection, One Vaccine 50759 11/07/19 08 SEGUNDOSU SHAHID [facility] Anthrax Vaccine, For Subcutaneous Use 11/07/19 08 SU SEGUNDO [facility] Clinical Social Work Individual Outpatient Counseling 45 Minutes 10/25/19 08 FRANCISCO FLOWER [facility] Typhoid Vaccine Vi Capsular Polysaccharide, For Intramus Use Typhoid Vaccine Vi Capsular Polysaccharide, For Intramus Use 28546 10/10/19 08 FLANAGANLICO [facility] Immunization Administration By Injection, One Vaccine Immunization Administration By Injection, One Vaccine 55635 10/10/19 08 WILLIAMS FLANAGANI Janette [facility] Anthrax Vaccine, For Subcutaneous Use 10/10/19 08 MASHA LICO N [facility] Hepatitis B Vaccine (Active) Adult Dosage 10/10/19 08 MASHA LICO N [facility] Immunization Administration By Injection, Each Additional Vaccine 10/10/19 08 MASHA LICO N [facility] Psychiatric Therapy Preparation of Psychiatric Status Report Psychiatric Therapy Preparation of Psychiatric Status Report 13570 01/19/20 07 TURNER MONTANO [facility] Psychotherapy Individual Approximately 30 Minutes 11/23/19 07 TURNER MONTANO Psychotherapy Individual Approximately 45 Minutes 11/09/19 07 TURNER MONTANO Psychotherapy Individual Approximately 30 Minutes 09/01/19 07 TURNER MONTANO Psychotherapy Individual Approximately 30 Minutes 08/23/19 07 OGLE, TURNER D Los Incision And Drainage Of Skin Absce , Simple Incision And Drainage Of Skin Abscess, Simple 38730 08/17/19 07 MEL WEINBERG Simple Excision Of Dermoid Cyst Of Nose (Subcutaneous) Simple Excision Of Dermoid Cyst Of Nose (Subcutaneous) 55023 08/17/19 07 MEL WEINBERG DoD Psychotherapy Individual Approximately 45 Minutes 08/16/19 07 OGLE, TURNER D DoD Psychotherapy Individual Approximately 45 Minutes 08/10/19 07 OGLE, TURNER D DoD Psychotherapy Individual Approximately 45 Minutes 07/26/19 07 OGLE, TURNER D DoD Psychotherapy Individual Approximately 45 Minutes 07/19/19 07 OGLE, TURNER D DoD Psychotherapy Individual Approximately 45 Minutes 07/11/19 07 OGLE, TURNER D Los Orthopedic Splinting Of Finger Orthopedic Splinting Of Finger 95259 05/09/20 06 MEL WEINBERG Finger splint, static 06 MEL WEINBERG DoD Psychotherapy Individual Approximately 45 Minutes 05/03/20 06 OGLE, TURNER D DoD Psychotherapy Individual Approximately 45 Minutes 04/13/20 06 OGLE, TURNER D DoD Psychotherapy Individual Approximately 45 Minutes 04/04/20 06 OGLE, TURNER D DoD Psychotherapy Individual Approximately 45 Minutes 03/28/20 06 OGLE, TURNER D DoD Psychotherapy Individual Approximately 45 Minutes 03/15/20 06 OGLE, TURNER D DoD Psychotherapy Individual Approximately 45 Minutes 03/07/20 06 OGLE, TURNER D DoD APPLICATION OF A MODALITY TO 1 OR MORE AREAS; HOT OR COLD PACKS 11/01/19 12 DoD APPLICATION OF A MODALITY TO 1 OR MORE AREAS; HOT OR COLD PACKS 10/11/19 12 DoD APPLICATION OF A MODALITY TO 1 OR MORE AREAS; HOT OR COLD PACKS 09/21/19 12 DoD APPLICATION OF A MODALITY TO 1 OR MORE AREAS; ELECTRICAL STIMULATION (UNATTENDED) 09/20/19 12 DoD APPLICATION OF A MODALITY TO 1 OR MORE AREAS; ELECTRICAL STIMULATION (UNATTENDED) 09/15/19 12 DoD APPLICATION OF A MODALITY TO 1 OR MORE AREAS; ELECTRICAL STIMULATION (UNATTENDED) 09/06/19 12 DoD APPLICATION OF A MODALITY TO 1 OR MORE AREAS; HOT OR COLD PACKS 08/17/19 12 DoD PSYCHIATRIC EVALUATION OF HOSPITAL RECORDS, OTHER PSYCHIATRIC REPORTS, PSYCHOMETRIC AND/OR PROJECTIVE TESTS, AND OTHER ACCUMULATED DATA FOR MEDICALDIAGNOSTIC PURPOSES 08/04/19 12 [facility] THERAPEUTIC, PROPHYLACTIC, OR DIAGNOSTIC INJECTION (SPECIFY SUBSTANCE OR DRUG); SUBCUTANEOUS OR INTRAMUSCULAR 12/16/19 11 [facility] DETERMINATION OF REFRACTIVE STATE 10/21/19 10 [facility] SCREENING TEST OF VISUAL ACUITY, QUANTITATIVE, BILATERAL 10/13/19 09 [facility] IMMUNIZATION ADMINISTRATION (INCLUDES PERCUTANEOUS, INTRADERMAL, SUBCUTANEOUS, OR INTRAMUSCULAR INJECTIONS); 1 VACCINE (SINGLE OR COMBINATION VACCINE/TOXOID) 11/06/19 08 [facility] INDIVIDUAL PSYCHOTHERAPY, INSIGHT ORIENTED, BEHAVIOR MODIFYING AND/OR SUPPORTIVE, IN AN OFFICE OR OUTPATIENT FACILITY, APPROXIMATELY 45 TO 50 MINUTES [id number] WITH THE PATIENT 10/25/19 08 [facility] HEPATITIS B VACCINE (HEPB), ADULT DOSAGE, 3 DOSE SCHEDULE, FOR INTRAMUSCULAR USE 10/10/19 08 [facility] PREPARATION OF REPORT OF PATIENT'S PSYCHIATRIC STATUS, HISTORY, TREATMENT, OR PROGRESS (OTHER THAN FOR LEGAL OR CONSULTATIVE PURPOSES) FOR OTHER INDIVIDUALS, AGENCIES, OR INSURANCE CARRIERS 01/19/20 07 [facility] INDIVIDUAL PSYCHOTHERAPY, INSIGHT ORIENTED, BEHAVIOR MODIFYING AND/OR SUPPORTIVE, IN AN OFFICE OR OUTPATIENT FACILITY, APPROXIMATELY 20 TO 30 MINUTES [id number]-PW-[id number] WITH THE PATIENT 11/23/19 07 [facility] INDIVIDUAL PSYCHOTHERAPY, INSIGHT ORIENTED, BEHAVIOR MODIFYING AND/OR SUPPORTIVE, IN AN OFFICE OR OUTPATIENT FACILITY, APPROXIMATELY 45 TO 50 MINUTES PYOB-GH-WZTA WITH THE PATIENT 11/08/19 07 [facility] INDIVIDUAL PSYCHOTHERAPY, INSIGHT ORIENTED, BEHAVIOR MODIFYING AND/OR SUPPORTIVE, IN AN OFFICE OR OUTPATIENT FACILITY, APPROXIMATELY 20 TO 30 MINUTES ETEP-BW-SVLR WITH THE PATIENT 08/31/19 07 [facility] INDIVIDUAL PSYCHOTHERAPY, INSIGHT ORIENTED, BEHAVIOR MODIFYING AND/OR SUPPORTIVE, IN AN OFFICE OR OUTPATIENT FACILITY, APPROXIMATELY 20 TO 30 MINUTES LUJQ-[id number] WITH THE PATIENT 08/23/19 07 [facility] EXCISION, BENIGN LESION INCLUDING MARGINS, EXCEPT SKIN TAG (UNLESS LISTED ELSEWHERE), SCALP, NECK, HANDS, FEET, GENITALIA; EXCISED DIAMETER 0.5 CM OR LESS 08/17/19 [facility] INDIVIDUAL PSYCHOTHERAPY, INSIGHT ORIENTED, BEHAVIOR MODIFYING AND/OR SUPPORTIVE, IN AN OFFICE OR OUTPATIENT FACILITY, APPROXIMATELY 45 TO 50 MINUTES VZQS-PE-[id number] WITH THE PATIENT 08/16/19 [facility] INDIVIDUAL PSYCHOTHERAPY, INSIGHT ORIENTED, BEHAVIOR MODIFYING AND/OR SUPPORTIVE, IN AN OFFICE OR OUTPATIENT FACILITY, APPROXIMATELY 45 TO 50 MINUTES TZWW-OO-[id number] WITH THE PATIENT 08/10/19 [facility] INDIVIDUAL PSYCHOTHERAPY, INSIGHT ORIENTED, BEHAVIOR MODIFYING AND/OR SUPPORTIVE, IN AN OFFICE OR OUTPATIENT FACILITY, APPROXIMATELY 45 TO 50 MINUTES PTYJ-QZ-[id number] WITH THE PATIENT 07/25/19 [facility] INDIVIDUAL PSYCHOTHERAPY, INSIGHT ORIENTED, BEHAVIOR MODIFYING AND/OR SUPPORTIVE, IN AN OFFICE OR OUTPATIENT FACILITY, APPROXIMATELY 45 TO 50 MINUTES FZOF-YX-[id number] WITH THE PATIENT 07/18/19 [facility] INDIVIDUAL PSYCHOTHERAPY, INSIGHT ORIENTED, BEHAVIOR MODIFYING AND/OR SUPPORTIVE, IN AN OFFICE OR OUTPATIENT FACILITY, APPROXIMATELY 45 TO 50 MINUTES QJCR-FO-[id number] WITH THE PATIENT 07/11/19 [facility] APPLICATION OF FINGER SPLINT; STATIC 05/09/20 [facility] INDIVIDUAL PSYCHOTHERAPY, INSIGHT ORIENTED, BEHAVIOR MODIFYING AND/OR SUPPORTIVE, IN AN OFFICE OR OUTPATIENT FACILITY, APPROXIMATELY 45 TO 50 MINUTES WIXV-AB-MFIS WITH THE PATIENT 05/03/20 [facility] SPLINT, PREFABRICATED, DIGIT (SPECIFY DIGIT BY USE OF MODIFIER) 04/24/20 [facility] INDIVIDUAL PSYCHOTHERAPY, INSIGHT ORIENTED, BEHAVIOR MODIFYING AND/OR SUPPORTIVE, IN AN OFFICE OR OUTPATIENT FACILITY, APPROXIMATELY 45 TO 50 MINUTES KQGP-HG-YQJB WITH THE PATIENT 04/12/20 [facility] INDIVIDUAL PSYCHOTHERAPY, INSIGHT ORIENTED, BEHAVIOR MODIFYING AND/OR SUPPORTIVE, IN AN OFFICE OR OUTPATIENT FACILITY, APPROXIMATELY 45 TO 50 MINUTES LDVB-QZ-VXIM WITH THE PATIENT 04/04/20 [facility] INDIVIDUAL PSYCHOTHERAPY, INSIGHT ORIENTED, BEHAVIOR MODIFYING AND/OR SUPPORTIVE, IN AN OFFICE OR OUTPATIENT FACILITY, APPROXIMATELY 45 TO 50 MINUTES ZEUE-IN-LYLV WITH THE PATIENT 03/28/20 [facility] INDIVIDUAL PSYCHOTHERAPY, INSIGHT ORIENTED, BEHAVIOR MODIFYING AND/OR SUPPORTIVE, IN AN OFFICE OR OUTPATIENT FACILITY, APPROXIMATELY 45 TO 50 MINUTES WUQZ-KL-HKIZ WITH THE PATIENT 03/15/20 [facility] INDIVIDUAL PSYCHOTHERAPY, INSIGHT ORIENTED, BEHAVIOR MODIFYING AND/OR SUPPORTIVE, IN AN OFFICE OR OUTPATIENT FACILITY, APPROXIMATELY 45 TO 50 MINUTES YHDR-UO-[id number] WITH THE PATIENT 03/07/20 [facility] INDIVIDUAL PSYCHOTHERAPY, INSIGHT ORIENTED, BEHAVIOR MODIFYING AND/OR SUPPORTIVE, IN AN OFFICE OR OUTPATIENT FACILITY, APPROXIMATELY 45 TO 50 MINUTES HDMG-FM-HERC WITH THE PATIENT 02/29/20 [facility] PSYCHOLOG TESTING (ASSESS EMOTION,INTELLECT ABILITIES,PERSONALITY & PSYCHOPATH,EG,MMPI,RO RSCHACH,WAIS)/HR PSYCHOLOGIST/PHYS TIME,BOTH VWWI-MM-AANW ADMIN TEST TO PAT & INTERP TEST RESULT & PREP RPT 02/14/20 [facility] INDIVIDUAL PSYCHOTHERAPY, INSIGHT ORIENTED, BEHAVIOR MODIFYING AND/OR SUPPORTIVE, IN AN OFFICE OR OUTPATIENT FACILITY, APPROXIMATELY 45 TO 50 MINUTES CACB-JX-RKZR WITH THE PATIENT 01/18/20 [facility] INDIVIDUAL PSYCHOTHERAPY, INSIGHT ORIENTED, BEHAVIOR MODIFYING AND/OR SUPPORTIVE, IN AN OFFICE OR OUTPATIENT FACILITY, APPROXIMATELY 45 TO 50 MINUTES GIKT-WE-IAEI WITH THE PATIENT 01/13/20 [facility] INDIVIDUAL PSYCHOTHERAPY, INSIGHT ORIENTED, BEHAVIOR MODIFYING AND/OR SUPPORTIVE, IN AN OFFICE OR OUTPATIENT FACILITY, APPROXIMATELY 45 TO 50 MINUTES XFAF-VG-VPZP WITH THE PATIENT 10/18/19 [facility] INDIVIDUAL PSYCHOTHERAPY, INSIGHT ORIENTED, BEHAVIOR MODIFYING AND/OR SUPPORTIVE, IN AN OFFICE OR OUTPATIENT FACILITY, APPROXIMATELY 45 TO 50 MINUTES HHJS-PN-OTXF WITH THE PATIENT 10/11/19 [facility] PSYCHIATRIC DIAGNOSTIC INTERVIEW EXAMINATION 10/06/19 [facility] INDIVIDUAL PSYCHOTHERAPY, INSIGHT ORIENTED, BEHAVIOR MODIFYING AND/OR SUPPORTIVE, IN AN OFFICE OR OUTPATIENT FACILITY, APPROXIMATELY 45 TO 50 MINUTES IBUL-HV-AKHJ WITH THE PATIENT 10/03/19 [facility] HEALTH AND BEHAVIOR INTERVENTION, EACH 15 MINUTES, MSVT-JQ-MQCC; GROUP (2 OR MORE PATIENTS) 11/09/19 [facility] ELECTROCARDIOGRAM, ROUTINE ECG WITH AT LEAST 12 LEADS; WITH INTERPRETATION AND REPORT 11/09/19 [facility] MENINGOCOCCAL POLYSACCHARIDE VACCINE, SEROGROUPS A, C, Y, W-135, QUADRIVALENT (MPSV4), FOR SUBCUTANEOUS USE 11/04/19 [facility] TREATMENT OF SUPERFICIAL WOUND DEHISCENCE; WITH PACKING 03/21/20 [facility] INDIVIDUAL PSYCHOTHERAPY, INSIGHT ORIENTED, BEHAVIOR MODIFYING AND/OR SUPPORTIVE, IN AN OFFICE OR OUTPATIENT FACILITY, APPROXIMATELY 45 TO 50 MINUTES WLGD-JO-NOAT WITH THE PATIENT 10/16/19 [facility] INDIVIDUAL PSYCHOTHERAPY, INSIGHT ORIENTED, BEHAVIOR MODIFYING AND/OR SUPPORTIVE, IN AN OFFICE OR OUTPATIENT FACILITY, APPROXIMATELY 45 TO 50 MINUTES KWYK-[id number] WITH THE PATIENT 10/04/19 [facility] INDIVIDUAL PSYCHOTHERAPY, INSIGHT ORIENTED, BEHAVIOR MODIFYING AND/OR SUPPORTIVE, IN AN OFFICE OR OUTPATIENT FACILITY, APPROXIMATELY 45 TO 50 MINUTES XGQF-KD-ZWRY WITH THE PATIENT 08/27/19 [facility] INDIVIDUAL PSYCHOTHERAPY, INSIGHT ORIENTED, BEHAVIOR MODIFYING AND/OR SUPPORTIVE, IN AN OFFICE OR OUTPATIENT FACILITY, APPROXIMATELY 45 TO 50 MINUTES [id number]-QK-[id number] WITH THE PATIENT 08/12/19 [facility] INDIVIDUAL PSYCHOTHERAPY, INSIGHT ORIENTED, BEHAVIOR MODIFYING AND/OR SUPPORTIVE, IN AN OFFICE OR OUTPATIENT FACILITY, APPROXIMATELY 45 TO 50 MINUTES NKML-DP-TOTF WITH THE PATIENT 08/01/19 [facility] Social History Combined list of available smoking, tobacco, and other social history from Department of Defense and Veterans Affairs facilities. Social History Type Response Date Comment Sourc e Tobacco smoking status NHIS VA-TOBACCO USER EVERY DAY 06/11/2023 [facility] History of tobacco use VA-TOBACCO USE WI 30 MIN OF WAKEUP 06/11/2023 [facility] History of tobacco use VA-TOBACCO USER E VERY DAY 05/15/2022 [facility] History of tobacco use VA-TOBACCO USER E VERY DAY 05/10/2021 [facility] History of tobacco use VA-TOBACCO USER E VERY DAY 04/06/2020 [facility] History of tobacco use VA-TOBACCO USE CO UNSEL YES 12/16/2018 [facility] History of tobacco use CURRENT TOBACCO USER 12/18/2017 [facility] History of tobacco use FORMER TOBACCO USE <1Y 12/06/2016 [facility] History of tobacco use CURRENT TOBACCO USER 09/27/2015 [facility] This section is an empty social history section. [facility] Plan of Care List of future care activities from Department of Veterans Affairs facilities. Additional future care activities may be listed in the Assessment and Plan section. Date/Time Care Activity Care Activity Detail Facili ty 08/28/2023 AMBULATORY - NONE AMBULATORY - NONE [facility]
--- OUTSIDE RECORDS SUMMARY | 2023-08-01 10:38 | XMS_ITS | Referral Summary ---
Author Name Unknown Organization [facility] Address [address] [place] [address] Care Team Providers Care Smudger Name Role Phone Thea Fan MD Primary Care Provider [phone] Allergies No known active allergies Medications Medication Sig Dispensed Refills Start Date End Date Status Esomeprazole Magnesium (NEXIUM PO) 0 Act abraham nabumetone (RELAFEN) 750 MG tabletIndications:Cer vicalgia Take 1 tablet (750 mg) by mouth daily 30 tablet 1 02/14/2018 Active Active Problems Problem Noted Date Diagnosed Date Tobacco use disorder 07/27/2016 Seborrheic keratosis 07/27/2016 Chronic low back pain 09/15/2015 CARDIOVASCULAR SCREENING; LDL GOAL LESS THAN 160 08/18/2014 Immunizations Name Administration Dates Next Due Influenza Vaccine >6 months,chandra, PF 07/10/2016, 04/29/2015 Social History Tobacco Use Types Packs/Day Years Used Date Smoking Tobacco: Former Smokeless Tobacco: Never Tobacco Cessation:Ready to Q uit: Yes; Counseling Given: Yes Comments:Quit 03/2019. Alcohol Use Standard Drinks/Week Comments Yes 0 (1 standard drink = 0.6 oz pur e alcohol) socially PHQ-2 Answer Date Recorded PHQ-2 Score 0 07/10/2018 Sex and Gender Information Value Date Recorded Sex Assigned at Not on file Gender Identity Not on file Sexual Orientation Not on file Last Filed Vital Signs Vital Sign Reading Time Taken Comments Blood Pressure 122/79 06/02/2019 10:50 AM APPLICATION OPERATIONS ENGINEER Pulse 73 06/02/2019 10:50 AM APPLICATION OPERATIONS ENGINEER Temperature 36.8 ??C (98.3 ??F) 06/02/2019 10:[address] Respiratory Rate 12 06/02/2019 10:50 AM APPLICATION OPERATIONS ENGINEER Oxygen Saturation 100% 06/02/2019 10:50 AM APPLICATION OPERATIONS ENGINEER Inhaled Oxygen Concentration - - Weight 89.8 kg (198 lb) 06/02/2019 10:50 AM APPLICATION OPERATIONS ENGINEER Height 182.9 cm (6') 07/26/2017 8:34 AM APPLICATION OPERATIONS ENGINEER Body Mass Index 26.85 07/26/2017 8:34 AM APPLICATION OPERATIONS ENGINEER Plan of Treatment Not on file Care Teams Smudger Relationship Specialty [place] [address] [place] [address] PCP - General Family Practice 09/15/15
--- OUTSIDE RECORDS SUMMARY | 2023-08-01 10:38 | XMS_ITS | Clinical Summary ---
Author Name Unknown Organization [facility] Address [address] [place] [address] Care Team Providers Care Project Design Engineer Name Role Phone Thea Fan MD Primary Care Provider [phone] Allergies No known active allergies Medications Medication [...] Administration Dates Next Due Influenza Vaccine >6 months,quad, PF 07/10/2016, 04/29/2015 Family History Medical History Relation Comments Family History Negative Other Relation Status Comments Father Alive Maternal Grandfather Alive Maternal Grandmother Alive Mother Alive Other Paternal Grandfather Paternal Grandmother Social History Tobacco Use Types Packs/Day Years [...] Comments Blood Pressure 122/79 06/02/2019 10:50 AM PORTABLE ROUTER OPERATOR Pulse 73 06/02/2019 10:50 AM PORTABLE ROUTER OPERATOR Temperature 36.8 ??C (98.3 ??F) 06/02/2019 10:[address] Respiratory Rate 12 06/02/2019 10:50 AM PORTABLE ROUTER OPERATOR Oxygen Saturation 100% 06/02/2019 10:50 AM PORTABLE ROUTER OPERATOR Inhaled Oxygen Concentration - - Weight 89.8 kg (198 lb) 06/02/2019 10:50 AM PORTABLE ROUTER OPERATOR Height 182.9 cm (6') 07/26/2017 8:34 AM PORTABLE ROUTER OPERATOR Body Mass Index 26.85 07/26/2017 8:34 AM PORTABLE ROUTER OPERATOR Plan of Treatment Not on file Care Teams Project Design Engineer Relationship Specialty [place] [address] [place] [address] PCP - General Family Practice 09/15/15
--- NOTE | 2023-08-01 11:09 | W.PM.H&PU ---
History & Physical Update History & Physical Update H&P Reviewed and patient assessed: No changes noted
--- NOTE | 2023-08-01 11:09 | PM.ORPRC ---
Procedure Note Date of procedure: 08/01/23 Procedure: PREOPERATIVE DIAGNOSES: 1. Right shoulder rotator SLAP tear. POSTOPERATIVE DIAGNOSES: 1. Right shoulder Type II SLAP tear NAME OF OPERATION: 1. Right shoulder arthroscopic biceps tenodesis. 2. For right shoulder arthroscopic superior labral repair SURGEON: Omari Smith MD INCINERATOR ATTENDANT: Charisse Mercado P.A.-C. An event marketing assistant was critical for this case to aide in patient positioning, suture manipulation, arm positioning, instrument positioning, and closure. ANESTHESIA: General plus preoperative supraclavicular block. IMPLANTS: Arthrex 4.75 knotless BioComposite Loop'N'Tack tenodesis implant; Arthrex 1.8 knotless FiberTak suture anchor COMPLICATIONS: None ESTIMATED BLOOD LOSS: 2 mL INDICATIONS: The patient is a pleasant, 43-year-old male who has experienced right shoulder pain since injuring it last summer. Symptoms did not improve with conservative management and MRI revealed a SLAP tear. Due to failure of symptoms to improve with non operative management, patient was offered surgical intervention consisting of right shoulder arthroscopic biceps tenodesis with possible labral repair for symptomatic relief. Prior to surgery risks and benefits of procedure discussed with patient all questions were answered and informed consent was obtained. FINDINGS: Exam under anesthesia revealed stable shoulder with full range of motion. The diagnostic arthroscopy revealed healthy chondral surfaces of the glenohumeral joint. The subscapularis, supraspinatus, and infraspinatus rotator cuff tendons were intact. There was a type 2 SLAP tear tendon. The long head of the biceps tendon was intact. The anterior posterior labrum were intact. No loose bodies were identified within the pouch or subscapularis recess. PROCEDURE: Patient was seen preoperatively and the operative shoulder was marked. A supraclavicular nerve block was performed by anesthesia staff in preop holding. The patient was brought to the operating room and placed supine on the operating table. Induction of anesthesia was completed, and patient was given IV Ancef preoperatively for prophylaxis. He was then rotated the beach chair position. Head was placed in padded head bander and liner operator and all bony prominences were well padded. The operative shoulder and upper extremity were prepped and draped in the appropriate sterile fashion using ChloraPrep. Surgical time-out performed confirming patient, identity surgical site, and surgical procedure. The glenohumeral joint was injected with 40 mL of normal saline using an 18g spinal needle from a posterior approach. Posterior portal was established. Anterior portal was established after localization with a spinal needle, and a 7.0 mm cannula was placed here. Diagnostic arthroscopy was then performed with findings as noted above. Attention was then directed to the biceps tenodesis. A FiberLink suture tape was passed around and through the proximal biceps tendon using the Loop 'N' Tack SwiftStitch suture Passer. Biceps tenotomy was then performed using arthroscopic scissors. Biceps tenodesis was then completed using a 4.75 mm knotless BioComposite SwiveLock anchor. Remnant sutures were cut and removed. A probe was then introduced in the superior labrum remained unstable, so decision was made to proceed with a superior labral repair. Using the percutaneous kit, a 5.5 mm cannula was placed through the cuff to allow for placement of an anchor in the superior joint. A 1.8 mm knotless FiberTak suture anchor was then placed at the 12 o'clock position of the glenoid. Suture was then passed around the superior labrum and tension using the knotless technique. Remnant sutures and cut and removed. Probe was then reintroduced, and the labrum was now confirmed to be stable. Arthroscopic instruments and cannulas were removed. Excess fluid was drained and wound closure was performed with 3-0 nylon. Sterile dressings were applied, and arm was placed in a simple sling. The patient was transferred back to supine position woken from anesthesia and then transferred to the recovery room in stable condition. PLAN: 1. Discharged to home day of surgery. 2. Ice for pain and swelling. 3. Tylenol and oxycodone as needed for pain control. 4. Simple sling as needed for comfort. -Remove sling several times daily for passive and active assist elbow and shoulder range of motion exercises -No lifting, pushing, pulling with the right shoulder -No resisted elbow flexion or forearm supination exercises. 5. Initiate formal physical therapy per the isolated proximal biceps tenodesis rehabilitation protocol in 1 week. 5. Follow-up in orthopedic clinic in 10-14 days for wound check and suture removal.
[2023-08-01] MEDS: fentaNYL 100 MCG/2 ML inj IVP (11:14)
[2023-08-01] MEDS: MIDAZOLAM HCL 1 MG/ML inj IVP (11:14)
[2023-08-01] MEDS: SODIUM CHLORIDE 0.9 % (FLUSH) 10 ML SYRINGE IVF (11:19)
--- NOTE | 2023-08-01 11:21 | W.PM.NB ---
Nerve Block Nerve Block Time Seen by Provider: 11:12 Date Seen: 08/01/23 Type of block requested by surgeon for post-operative analgesia: supraclavicular Side: right Time out performed: Yes Verification of patient name: Yes Verification of date of : Yes Site marking: site marked Name of person performing procedure: Nestor Continuous monitoring Was continuous monitoring of O2 sat, B/P, engraver apprentice decorative, recorded every 15 minutes?: Yes Procedure Checklist: sterile prep, needles and gloves Ultrasound guided. Images saved: Yes Medications given in 5ml increments after negative aspiration: Ropivicaine %: 0.5 mL: 20 Needle gauge: 22 Decadron (mg): 10 Precedex (mcg): 25 Patient tolerated procedure well: Yes Block Charges Block Charge (with Pro Fee): Brachial Plexus Use of Ultrasound Machine for Block: Yes- US Guidance/pain block
--- NOTE | 2023-08-01 11:22 | W.ANESCHARGE ---
Anesthesia Charges Start Date/Time Anesthesia Start Date: 08/01/23 Anesthesia Start Time: 11:22 Stop Date/Time Anesthesia Stop Date: 08/01/23 Anesthesia Stop Time: 13:08
--- NOTE | 2023-08-01 11:22 | SUR.PREOP ---
TIME?OUT:?1113 PT/RN/MDA?VERIFICATION?OF?SURGICAL?SITE,?PROCEDURE,?AND?CONSENT OBTAINED?PRIOR?TO?INVASIVE?PROCEDURE.
[2023-08-01] MEDS: CEFAZOLIN 2 GM INJ IVP (11:30)
[2023-08-01] MEDS: EPINEPHrine 1 MG in SODIUM CHLORIDE IRRIG SOLUTION 3,000 ML 3001 MG IRRIGATION (12:20)
--- NOTE | 2023-08-01 13:09 | W.ANESCHARGE ---
Anesthesia Charges Start Date/Time Anesthesia Start Date: 08/01/23 Anesthesia Start Time: 11:22 Stop Date/Time Anesthesia Stop Date: 08/01/23 Anesthesia Stop Time: 13:08
== END 2023-08-01 14:50 | disposition home or self-care (01) ==
PROVIDERS: Visit Provider Orthopaedic Surgery
PROC: (CPT 29805; principal; 2023-08-01 11:45)
DX: S43.431A Superior glenoid labrum lesion of right shoulder, initial encounter (principal); G89.18 Other acute postprocedural pain
CPT/HCPCS: 29828; 29807; 01630; 64415; 76942; C1713; J0171; J0330; J0690; J1100; J2250; J2371; J2405; J2704; J2710; J2795; J3010; J7120; L3670

== ENCOUNTER 2023-10-19 08:00 | Outpatient (RCR) | payer BC, SELFPAY | END 2024-02-16 23:59 | disposition home or self-care (01) | PROVIDERS: PCP Internal Medicine; Visit Provider Physician Assistant Surgical | DX: S43.431A Superior glenoid labrum lesion of right shoulder, initial encounter (principal); Z98.890 Other specified postprocedural states; M25.512 Pain in left shoulder; Z74.09 Other reduced mobility; R29.898 Other symptoms and signs involving the musculoskeletal system; Z51.89 Encounter for other specified aftercare | CPT/HCPCS: 97110; 97140; 97162 ==

== ENCOUNTER 2024-09-09 19:18 | Outpatient (CLI) | payer BC, SELFPAY | END 2024-09-09 19:19 | disposition home or self-care (01) | LOC: LKVREF 19:19 | PROVIDERS: PCP Internal Medicine | DX: R10.9 Unspecified abdominal pain (principal) | CPT/HCPCS: 83690 ==

== ENCOUNTER 2024-10-09 09:48 | Outpatient (CLI) | payer BC, SELFPAY | END 2024-10-09 09:49 | disposition home or self-care (01) | LOC: NFLDREF 10-13 19:42 | PROVIDERS: PCP Internal Medicine; Referring Provider Internal Medicine; Visit Provider Internal Medicine | DX: N20.0 Calculus of kidney (principal) | CPT/HCPCS: 87086 ==

== ENCOUNTER 2024-10-17 07:49 | Outpatient (CLI) | payer BC, SELFPAY ==
--- NOTE | 2024-10-17 08:00 | CRLHL7_ITS ---
For Patients: As a result of the Century Cures Act, medical imaging exams and procedure reports are released immediately into your electronic medical record. You may view this report before your referring provider. If you have questions, please contact your health care provider. INDICATION: Calculus of kidney pain on right side of abdomen TECHNIQUE: CT abdomen and pelvis without contrast. COMPARISON: None. FINDINGS: Lower chest: Unremarkable. Liver: Low-attenuation lesion in the left hepatic lobe incompletely assessed but may represent a cyst. Gallbladder and bile ducts: No stones or inflammation. No biliary dilatation. Pancreas: Unremarkable. No mass or inflammation. Spleen: Normal in size. No masses. Adrenal glands: Normal in size. No nodules. Kidneys: Normal in size. No suspicious masses, stones, or hydronephrosis. GI tract: Unremarkable. Normal in caliber. No sign of mass or inflammation. Appendix measures up to 6 millimeters no periappendiceal inflammatory change. Vasculature: Abdominal aorta is normal in caliber. Lymph nodes: No lymphadenopathy. Peritoneum/Abdominal Wall: Unremarkable. No sign of mass or infiltration. No free air or significant free fluid. Small fat containing inguinal hernias Pelvis: Enlarged prostate gland urinary bladder incompletely distended with wall thickening slight pericystic stranding Bones: Unremarkable for age. IMPRESSION: 1. No acute findings in the abdomen or pelvis. No renal calculi or hydronephrosis. Appendix upper limits of normal no inflammatory changes are seen. 2D enlarged prostate gland. Wall thickening of the urinary bladder incompletely distended minimal pericystic stranding correlate for possible cystitis. Please note that all CT scans at this facility use dose modulation, iterative reconstruction, and/or weight-based dosing when appropriate to reduce radiation dose to as low as reasonably achievable. Dictated by Marianne Han MD @ 10/19/2024 8:58:52 AM (Electronically Signed)
== END 2024-10-17 07:50 | disposition home or self-care (01) ==
PROVIDERS: PCP Internal Medicine; Visit Provider Internal Medicine
DX: N20.0 Calculus of kidney (principal); N40.0 Benign prostatic hyperplasia without lower urinary tract symptoms
CPT/HCPCS: 74176